=== PATIENT | female | born 1960 | race Caucasian/White ===

== ENCOUNTER 2019-03-04 08:46 | Emergency (ER) | payer OTHER ==
[2019-03-04 09:05] VITALS: BP 113/54
--- NOTE | 2019-03-04 09:33 | UC ---
Dental HPI - HPI Summary HPI Summary: 58-year-old female who awakened with a severe toothache right upper distal molar. She denies any fever or chills. She has not seen a dentist in about 13 or 14 years. She ran out of her medications in December and has been trying to get in with her primary care provider for those refills. She stopped at [facility] today to acquire those however their computers were down so she was unable to get the refills. I reiterated to her the importance of calling them as soon as possible to obtain the refills. - History of Current Complaint Chief Complaint: UCDentalProblem Stated Complaint: DENTAL COMPLAINT Time Seen by Provider: 03/04/19 09:03 Hx Obtained From: Patient Hx Last Menstrual Period: n/a Onset/Duration: Gradual Onset, Other - Patient awakened this morning with the right upper distal molar toothache. Severity: Moderate Pain Intensity: 8 Aggravating Factor(s): Chewing Alleviating Factor(s): Nothing - Allergies/Home Medications Allergies/Adverse Reactions: Allergies Allergy/AdvReac Type Severity Reaction Status Date / Time morphine Allergy Unknown Verified 03/04/19 09:06 Reaction Details Home Medications: Home Medications Acetaminophen [Tylenol Extra Strength] 1 tab PO ONCE 03/04/19 [History Confirmed 03/04/19] Cetirizine HCl [Zyrtec] 1 tab PO DAILY 03/04/19 [History Confirmed 03/04/19] Glimepiride 1 tab PO DAILY 03/04/19 [History Confirmed 03/04/19] Meloxicam [Mobic] 1 tab PO DAILY 03/04/19 [History Confirmed 03/04/19] Metformin HCl 1 tab PO BID 03/04/19 [History Confirmed 03/04/19] Simvastatin 1 tab PO DAILY 03/04/19 [History Confirmed 03/04/19] PMH/Surg Hx/FS Hx/Imm Hx Previously Healthy: Yes Endocrine History: Diabetes Cardiovascular History: Hypertension - Borderline hypertension. GI/ History: Gastroesophageal Reflux - Surgical History Surgical History: Yes Surgery Procedure, Year, and Place: c section 22 yrs ago. hysterectomy 2000. fatty tumors 2001-3. left thigh stent 2002 for clots. R knee replacement 2016 - Family History Known Family History: Positive: Hypertension, Diabetes, Other - RA - Social History Alcohol Use: None Substance Use Type: None Smoking Status (MU): Never Smoked Tobacco Household Exposure Type: Cigarettes - Immunization History Most Recent Influenza Vaccination: no Most Recent Tetanus Shot: Unknown Review of Systems All Other Systems Reviewed And Are Negative: Yes ENT: Positive: Dental Pain Is Patient Immunocompromised?: No Physical Exam Triage Information Reviewed: Yes Appearance: Well-Appearing, No Pain Distress, Well-Nourished Vital Signs: Initial Vital Signs Temp 97.5 F 03/04/19 08:59 Pulse 64 03/04/19 08:59 Resp 16 03/04/19 08:59 BP 113/54 03/04/19 08:59 Pulse Ox 97 03/04/19 08:59 Vital Signs Reviewed: Yes Eyes: Positive: Conjunctiva Clear ENT: Positive: Pharynx normal, TMs normal, Uvula midline Dental: Positive: Percussion Tenderness @ - Mild tenderness on palpation the upper right distal molar. Mild erythema of the gumline, no abscess formation is noted. No drainage. No visible cavity in that molar. Neck: Positive: Supple, Nontender, No Lymphadenopathy Respiratory: Positive: Lungs clear, Normal breath sounds, No respiratory distress, No accessory muscle use Cardiovascular: Positive: RRR, No Murmur, Pulses Normal, Brisk Capillary Refill Musculoskeletal Exam: Normal Neurological Exam: Normal Psychological Exam: Normal Skin Exam: Normal Dental Complaint Course/Dx - Course Course Of Treatment: The patient's last refill of medication was in September and her last medication taken was in December. She was given a list of dentists to follow up with this week. She is to go to [facility] her call in and asked for refill of her medications. Although the patient has hypotension as a result of taking morphine she has taken Percocet in the past for knee replacement without any adverse reactions. I advised her Percocet contains Tylenol and she should use that only for severe pain and take regular Tylenol every 4 hours - Differential Dx/Diagnosis Provider Diagnosis: Toothache Discharge ED - Sign-Out/Discharge Documenting (check all that apply): Patient Departure All imaging exams completed and their final reports reviewed: No Studies - Discharge Plan Condition: Fair Disposition: HOME Prescriptions: Amoxicillin/Clavulanate TAB* [Augmentin TAB 875*] 875 mg PO BID 10 Days #20 tab Oxycodone HCl/Acetaminophen [Percocet 5-325 mg Tablet] 1 each PO Q4HR PRN #10 tablet MDD 8 PRN Reason: Pain - Severe Patient Education Materials: Toothache (ED) Referrals: No Primary Care Phys,NOPCP [Primary Care Provider] - [facility] [Outside] Additional Instructions: Take the Percocet only for severe pain, call your dentist and make an appointment to be seen. Follow[facility]up with [facility] regarding [facility] refill of your medications. - Billing Disposition and Condition Condition: FAIR Disposition: Home
== END 2019-03-04 09:47 | disposition home or self-care (01) ==
LOC: UCCORT 08:46
DX: Z88.5 Allergy status to narcotic agent (principal); E11.9 Type 2 diabetes mellitus without complications; Z79.84 Long term (current) use of oral hypoglycemic drugs; R03.0 Elevated blood-pressure reading, without diagnosis of hypertension
CPT/HCPCS: 99212; G0463

== ENCOUNTER 2019-04-10 08:17 | Emergency (ER) | payer OTHER | END 2019-04-10 08:30 | disposition left against medical advice (07) | LOC: UCCORT 08:17 | DX: Z53.21 Procedure and treatment not carried out due to patient leaving prior to being seen by health care provider (principal) ==